=== PATIENT | male | born 1945 | race Caucasian/White ===

== ENCOUNTER 2016-08-25 14:53 | Outpatient (CLI) | payer MEDICARE, BC | END 2016-08-25 14:54 | disposition home or self-care (01) | DX: K80.20 Calculus of gallbladder without cholecystitis without obstruction (principal); R10.11 Right upper quadrant pain ==

== ENCOUNTER 2018-10-29 10:46 | Outpatient (CLI) | payer MEDICARE, BC ==
--- NOTE | 2018-10-29 14:54 | Ultrasound Report ---
Reason: BENIGN PROSTATIC HYPERPLASIA WITH LOWER URINARY TR Procedure Date: 10/29/2018 Accession Number: [id number] / [id number] Procedure: US - Bladder CPT Code: FULL RESULT: EXAM: PELVIS ULTRASOUND, LIMITED EXAM DATE: 10/29/2018 11:03 AM. CLINICAL HISTORY: Benign prostatic hyperplasia with lower urinary symptoms. COMPARISON: ABDOMEN LIMITED 08/25/2016 3:29 PM. TECHNIQUE: Real-time scanning was performed with static images obtained. FINDINGS: Bladder: The initial bladder volume was 152 mL. A 58 mL postvoid residual bladder volume is noted. Bilateral ureteral jets documented. Normal wall thickness. No masses evident. Other: Mild prostatic enlargement measuring 5.1 x 4.7 x 4.0. IMPRESSION: 1. Mild prostatic enlargement. 2. Small postvoiding residual 58 cc. RADIA
== END 2018-10-29 10:47 | disposition home or self-care (01) ==
LOC: DI 10:46
PROVIDERS: ATTEND Internal Medicine
DX: N40.1 Benign prostatic hyperplasia with lower urinary tract symptoms (principal)
CPT/HCPCS: 76857

== ENCOUNTER 2021-06-25 08:00 | Outpatient (CLI) | payer MEDICARE, BC | END 2021-06-25 23:59 | LOC: LAB.N 08:00 | PROVIDERS: ATTEND Family Medicine | DX: R05.9 Cough, unspecified (principal); Z20.822 Contact with and (suspected) exposure to COVID-19 ==

== ENCOUNTER 2021-06-25 12:28 | Outpatient (CLI) | payer MEDICARE, BC ==
--- NOTE | 2021-06-25 17:39 | XRAY Report ---
PROCEDURE: Chest 2 View X-Ray INDICATIONS: COUGH TECHNIQUE: 2 views of the chest. COMPARISON: None. FINDINGS: Surgical changes and devices: None. Lungs and pleura: There are a few patchy indistinct opacities in the left lung base. There is hyperi nflation of the lungs with flattening of the hemidiaphragms suggestive of COPD. No pleural effusions or pneumothorax. Mediastinum: Mediastinal contours are normal. Heart size is normal. Bones and chest wall: No suspicious bony abnormalities. Soft tissues appear unremarkable. IMPRESSION: 1. Patchy indistinct opacities in the left lung base may reflect atypical pneumonia or atelectasis. 2. Findings compatible with COPD. Reviewed by: Elijah Murillo MD on 06/25/2021 5:37 PM PST Approved by: Elijah Murillo MD on 06/25/2021 5:37 PM [facility] Station ID: [id number]
== END 2021-06-25 23:59 ==
LOC: DI.N 12:28
PROVIDERS: ATTEND Family Medicine
DX: R91.8 Other nonspecific abnormal finding of lung field (principal); R05.9 Cough, unspecified; Z20.822 Contact with and (suspected) exposure to COVID-19
CPT/HCPCS: 71046; U0004

== ENCOUNTER 2021-09-17 10:55 | Outpatient (CLI) | payer MEDICARE, BC ==
--- NOTE | 2021-09-17 11:38 | XRAY Report ---
PROCEDURE: Chest 2 View X-Ray INDICATIONS: PNA TECHNIQUE: 2 view(s) of the chest. COMPARISON: 06/24/2021 FINDINGS: Surgical changes and devices: None. Lungs and pleura: No pleural effusions or pneumothorax. Lungs are clear. Mediastinum: Mediastinal contours are normal. Heart size is normal. Bones and chest wall: No suspicious bony abnormalities. Soft tissues appear unremarkable. IMPRESSION: No acute cardiopulmonary process demonstrated radiographically. Reviewed by: Mario Fonseca MD on 09/17/2021 11:37 AM PST Approved by: Mario Fonseca MD on 09/17/2021 11:37 AM PST Station ID: [id number]
== END 2021-09-17 10:56 | disposition home or self-care (01) ==
LOC: DI 10:55
PROVIDERS: ATTEND Internal Medicine
DX: R93.89 Abnormal findings on diagnostic imaging of other specified body structures (principal); R91.8 Other nonspecific abnormal finding of lung field

== ENCOUNTER 2021-09-23 08:58 | Outpatient (CLI) | payer MEDICARE, BC | END 2021-09-23 08:59 | disposition home or self-care (01) | LOC: RT 08:58 | PROVIDERS: ATTEND Internal Medicine | DX: R06.09 Other forms of dyspnea (principal) | CPT/HCPCS: 94010; 94729 ==